=== PATIENT | female | born 1990 | race African-American/Black ===

== ENCOUNTER 2023-10-10 03:37 | Emergency (ER) | payer MEDICARE, MEDICAID, SELFPAY ==
[2023-10-10] VITALS (22 sets, daily range): BP systolic 136–166; BP diastolic 80–98; PULSE 85–100; RESP 12–29; TEMP 37; O2SAT 91–100
--- NOTE | ~2023-10-10 | XR_ITS ---
EXAMINATION: XR chest 1V portable DATE: 10/10/2023 04:30 INDICATION: Chest pain. Shortness of breath. Palpitations. TECHNIQUE: A single frontal view of the chest was obtained. COMPARISON: None. FINDINGS: There is no pneumonia, pleural effusion, or pneumothorax. Cardiomegaly is noted. A right in ternal jugular central venous catheter is seen with tip in the right atrium. IMPRESSION: 1. Cardiomegaly. Reviewed, dictated and finalized at location E. IMPRESSION: 1. Cardiomegaly.
--- NOTE | 2023-10-10 03:47 | PC.NURSE ---
Bedside glucose is 551, ERP notified.
--- NOTE | 2023-10-10 03:48 | ECG_ITS ---
SEE SCANNED COPY FOR CONFIRMED REPORT MTDD
[2023-10-10 03:49] LABS: Glucose Point of Care > 500 mg/dl (65-105)
--- NOTE | 2023-10-10 03:53 | ED.CHESTPAIN ---
HPI - Chest Pain General Chief Complaint: Recheck/Abnormal Lab/Rx <Oscar Dsouza DO - Last Filed: 10/10/23 04:49> Stated Complaint: high blood sugar <Oscar Dsouza DO - Last Filed: 10/10/23 04:49> Time Seen by Provider: 10/10/23 03:44 <Oscar Dsouza DO - Last Filed: 10/10/23 04:49> Source: patient <Oscar Dsouza DO - Last Filed: 10/10/23 04:49> Limitations: no limitations <Oscar Dsouza DO - Last Filed: 10/10/23 04:49> History of Present Illness HPI narrative: Patient is a 33-year-old female presents to the emergency department complaining of chest pain. Patient notes straight 30 minutes ago she woke up from sleep and was experiencing pressure in the middle of her chest that lasted approximately 3 minutes, admits to associated palpitations and shortness of breath with it all of which have resolved, states that she has seen more episode is the emergency and was told she had many heart attack, denies having any stents in her heart and admits to seeing a heart doctor as an outpatient. denies history of blood clots or use of blood thinners. Patient denies any recent injuries or recent illness. Patient notes that when she woke up she also noted that her insulin pump and fallen off and so she retested just prior to EMS arrival and transportation. Patient states she has chronic nausea without any acute changes. Patient states she still makes a small amount a urine. Patient notes that she is on dialysis through a right tunneled central venous catheter and gets this every Wednesday and Wednesday and received a full course on Wednesday without any complications and she has been on dialysis for the past 1 year. Patient denies fever, cough, sore throat, numbness, weakness, abdominal pain, diarrhea, melena, hematochezia, urinary discomfort. Patient denies radiation of the discomfort when she was having in the middle of her chest. <Oscar Dsouza DO - Last Filed: 10/10/23 04:49> Related Data Allergies/Adverse Reactions: Allergies Allergy/AdvReac Type Severity Reaction Status Date / Time Latex, Natural Rubber Allergy Other Verified 10/10/23 03:49 morphine Allergy Other Verified 10/10/23 03:49 <Oscar Dsouza DO - Last Filed: 10/10/23 04:49> Review of Systems Review of Systems: A 10 system review of systems was completed on the patient and is negative except for what is stated in the HPI. Nursing and ancillary documentation was reviewed. <Oscar Dsouza DO - Last Filed: 10/10/23 04:49> PMFSH Comments At time of signature, I have reviewed and agree with nursing past medical, surgical, social and family history unless otherwise noted. Please see the nursing chart for further information. There is no relevant family history pertinent to the presenting complaint. <Oscar Dsouza DO - Last Filed: 10/10/23 04:49> Exam Narrative: CONST: No acute distress. Well nourished. HENMT: Head is normocephalic and atraumatic. Moist mucous membranes. No posterior oropharynx erythema. EYES: No conjunctival icterus, injection, or pallor. PERRL. NECK: No meningeal signs. RESP: Able to speak in full sentences. Normal respiratory effort. CTAB. CARDIO: Regular rate. Regular rhythm. 2+ DP and radial pulses bilaterally. Tunneled central venous catheter in the right chest wall place without surrounding signs of infection. GI: Nondistended. No tenderness to palpation. Soft. : No CVA tenderness to palpation. SKIN: No rashes or lesions noted on exposed skin. NEURO: Oriented x3. Moves all extremities. No focal neurological deficits. EXTREM/MSK/BACK: No pedal edema. PSYCH: Normal affect. <Oscar Dsouza, - Last Filed: 10/10/23 04:49> Course Vital Signs Vital signs: Vital Signs Temperature 98.6 F 10/10/23 03:37 Pulse Rate 93 10/10/23 03:37 Respiratory Rate 16 10/10/23 03:37 Blood Pressure 137/80 10/10/23 03:37 Pulse Oximetry
[2023-10-10] MEDS: ASPIRIN 81 MG CHEWABLE TABLET 324 MG PO (04:03)
[2023-10-10] MEDS: ONDANSETRON INJ 4 MG/2 ML VIAL IV PUSH (04:03)
[2023-10-10 04:08] LABS: Basophils Percent Auto 0.4 % (0.2-1.2); Eosinophils Absolute Auto 1.1 K/mm3 (0-0.3); Eosinophils Percent Auto 12.9 % (0-4.4); Hematocrit 25.9 % (37.0-47.0); Hemoglobin 8.3 g/dL (12.0-15.0); Immature Granulocyte Absolute 0.02 K/mm3 (0.00-0.031); Immature Granulocyte Percent A 0.2 % (0-0.5); Lymphocytes Absolute Auto 0.87 K/mm3 (0.9-3.2); Lymphocytes Percent Auto 10.4 % (18.3-44.2); Mean Corpuscular Hemoglobin 31.7 pg (26-34); Mean Corpuscular Volume 98.9 fl (80-100); Mean Platelet Volume 11.4 fl (7.4-10.4); Monocytes Absolute Auto 0.4 K/mm3 (0.1-0.6); Monocytes Percent Auto 4.3 % (2.6-8.5); Neutrophils Percent Auto 71.8 % (45.5-73.1); Platelet Count Result 142 k/mm3 (150-375); Red Blood Count 2.62 M/mm3 (4.2-5.4); Red Cell Distribution Width 13.2 % (11.5-14.5); White Blood Count 8.4 K/mm3 (4.5-10.0)
[2023-10-10 04:20] LABS: Fractional Inspired Oxygen 21 %; HCO3 VBG 24.7 mEq/l (24.0-30.0); PCO2 VBG 42.9 mmHg (42.0-48.0); PO2 VBG 37.5 mmHg (35.0-45.0); pH VBG 7.378 (7.300-7.400)
[2023-10-10 04:30] LABS: Prothrombin Time 14.1 Seconds (11.1-14.7)
[2023-10-10 04:31] LABS: Partial Thromboplastin Time 33.7 Seconds (22.3-36.8)
[2023-10-10 04:32] LABS: Alanine Aminotransferase 13 U/L (6-35); Albumin Level 3.9 g/dL (3.5-5.1); Alkaline Phosphatase 72 U/L (38-126); Anion Gap 13 mmol/L (4-12); Aspartate Amino Transferase 19 U/L (14-36); Bilirubin,Total 0.8 mg/dL (0.2-1.3); Blood Urea Nitrogen 46 mg/dL (7-17); Calcium 7.8 mg/dL (8.4-10.2); Carbon Dioxide 26 mmol/L (22-30); Chloride 93 mmol/L (98-107); Estimated CRCL calculation 7 ml/min; Estimated Glomerular Filt Rate 7; Glucose 591 mg/dL (65-110); Lipase 60 U/L (23-300); Magnesium 2.2 mg/dL (1.6-2.3); Potassium 5.1 mmol/L (3.4-5.0); Sodium 132 mmol/L (137-145)
[2023-10-10 04:33] LABS: Troponin I 0.014 ng/mL (0.000-0.034)
[2023-10-10 04:38] LABS: D Dimer 0.33 ug/mL (<0.48)
[2023-10-10] MEDS: SODIUM ZIRCONIUM CYCLOSILICATE 10 GM POWD.PACK PO (05:07)
[2023-10-10] MEDS: SODIUM BICARBONATE 8.4% 50 MEQ/50 ML SYRINGE IV PUSH (05:07)
[2023-10-10] MEDS: INSULIN HUMAN REGULAR (*BKC) 100 UNITS/ML 10 UNITS IV PUSH (05:07)
--- NOTE | 2023-10-10 05:48 | PC.NURSE ---
Bedside glucose is 518, ERP notified.
[2023-10-10 05:50] LABS: Glucose Point of Care > 500 mg/dl (65-105)
--- NOTE | 2023-10-10 05:51 | PC.NURSE ---
Patient instructed by ERP to place her own insulin pump back on and for her to resumer her normal dose. Patient was assisted by this RN in turning and placing it back on.
--- NOTE | 2023-10-10 06:43 | ECG_ITS ---
SEE SCANNED COPY FOR CONFIRMED REPORT MTDD
--- NOTE | 2023-10-10 06:47 | PC.NURSE ---
Bedside glucose is 450. ERP notified.
[2023-10-10 06:48] LABS: Glucose Point of Care 450 mg/dl (65-105)
[2023-10-10 07:10] LABS: Troponin I 0.014 ng/mL (0.000-0.034)
[2023-10-10 07:41] LABS: Glucose Point of Care 351 mg/dl (65-105)
== END 2023-10-10 07:46 | disposition home or self-care (01) ==
PROVIDERS: Emergency Provider Student in an Organized Health Care Education/Training Program
DX: R07.9 Chest pain, unspecified (principal); N18.6 End stage renal disease; Z99.2 Dependence on renal dialysis
CPT/HCPCS: 36415; 71045; 80053; 82803; 82948; 83690; 83735; 84443; 84484; 85025; 85380; 85610; 85730; 93005; 96374; 96375; 99284; A9270; J1815; J2405